=== PATIENT | male | born 1940 | race Caucasian/White ===

== ENCOUNTER 2019-10-07 15:55 | Inpatient (IN) | payer MEDICARE, MEDICAID ==
[~2019-10-07] VITALS: Ht 162.6 cm; Wt 44.1 kg
[2019-10-07 17:11] LABS: BASOPHILS # (AUTO) 0.1 X10'3 (0-0.2); BASOPHILS % (AUTO) 0.5 % (0-1); EOSINOPHILS # (AUTO) 0.1 X10'3 (0-0.9); EOSINOPHILS % (AUTO) 0.3 % (0-6); HEMATOCRIT 28.6 % (42.0-52.0); HEMOGLOBIN 9.2 g/dl (14.0-17.9); LYMPHOCYTES # (AUTO) 0.3 X10'3 (1.1-4.8); MEAN CORPUSCULAR HEMOGLOBIN 24.9 PG (27.0-31.0); MEAN CORPUSCULAR HGB CONC 32.3 g/dL (33.0-36.5); MEAN CORPUSCULAR VOLUME 77.1 FL (78-98); MEAN PLATELET VOLUME 8.7 FL (7.4-10.4); MONOCYTES # (AUTO) 1.1 X10'3 (0-0.9); MONOCYTES % (AUTO) 6.6 % (2-12); NEUTROPHILS % (AUTO) 90.6 % (42-75); PLATELET COUNT 575 X10'3 (140-440); RED BLOOD COUNT 3.71 X10'6 (4.70-6.10); RED CELL DISTRIBUTION WIDTH 18.4 % (11.5-14.5); WHITE BLOOD COUNT 16.5 X10'3 (4.5-11.0)
[2019-10-07 17:23] LABS: PARTIAL THROMBOPLASTIN TIME 26 SECONDS (22-32)
[2019-10-07] MEDS ORDERED: levoFLOXACIN-Levaquin 750MG/D5 150 ML IV ONE (17:25)
[2019-10-07 17:29] LABS: ALANINE AMINOTRANSFERASE 19 U/L (12-78); ALBUMIN 2.1 G/DL (3.4-5.0); ALBUMIN/GLOBULIN RATIO 0.4 (1.1-1.5); ALKALINE PHOSPHATASE 85 IU/L (46-116); ANION GAP 7 (8-16); ASPARTATE AMINO TRANSFERASE 14 U/L (10-37); BILIRUBIN,TOTAL 0.2 MG/DL (0.1-1.0); BLOOD UREA NITROGEN 47 MG/DL (7-18); BUN/CREATININE RATIO 45.2 (5.4-32.0); CALCIUM 9.1 MG/DL (8.5-10.1); CHLORIDE 102 MMOL/L (99-107); CREATININE 1.04 MG/DL (0.60-1.10); GLUCOSE 119 MG/DL (70-104); POTASSIUM 4.6 MMOL/L (3.5-5.1); SODIUM 139 MMOL/L (135-145); TOTAL CARBON DIOXIDE 29.9 MMOL/L (24-32); TOTAL PROTEIN 7.6 G/DL (6.4-8.2); eGFR 69 ML/MIN
[2019-10-07] MEDS ORDERED: IPRA4AER PO (17:32)
[2019-10-07] MEDS ORDERED: GABA-532 PO (17:32)
[2019-10-07] MEDS ORDERED: CHOL100025 PO (17:32)
[2019-10-07] MEDS ORDERED: LISI-600 PO (17:32)
[2019-10-07] MEDS ORDERED: DICL-157 PO (17:32)
[2019-10-07] MEDS ORDERED: ROSU10TA28 PO (17:32)
[2019-10-07] MEDS ORDERED: BENZ-49 PO (17:32)
[2019-10-07] MEDS ORDERED: QUET50TA22 PO (17:32)
[2019-10-07 17:54] LABS: MAGNESIUM 2.3 MG/DL (1.5-2.4)
--- NOTE | 2019-10-07 18:10 | NUR ---
patient unable to urinate at this time
--- NOTE | 2019-10-07 18:31 | NUR ---
Helped pt attempt to use urinal for voiding but he was unable to produce urine. Pt not willing to be straight catheterized at this time.
[2019-10-07] MEDS ORDERED: magnesium Cl slow-release 64mg tablet PO PRN (19:00)
[2019-10-07] MEDS ORDERED: potassium CL 10mEq/100ml bag 100 ML IV PRN ×2 (19:00)
[2019-10-07] MEDS ORDERED: magnesium 4gm in 100ml NS 100 ML IV PRN (19:00)
[2019-10-07] MEDS ORDERED: potassium Cl 20 mEq SR tablet PO PRN ×2 (19:00)
[2019-10-07] MEDS ORDERED: morphine 2 MG/ML inj. syringe IV PRN (19:00)
[2019-10-07] MEDS ORDERED: ondansetron/PF 4mg/2ml inj IV PRN (19:00)
[2019-10-07] MEDS ORDERED: magnesium 2GM in 50ml NS 50 ML IV PRN (19:00)
[2019-10-07] MEDS: pantoprazole 40 MG vial IV SCH (19:26)
[2019-10-07] MEDS: K and/or MAG REPLACEMENT MC SCH (20:00)
--- NOTE | 2019-10-07 20:10 | NUR ---
received report from Rosalio PETERS RN. had opportunity to ask questions. awaiting pt.
[2019-10-07 20:20] VITALS: BP 153/78
[2019-10-07 20:34] LABS: CLARITY,URINE CLEAR (Clear); COLOR,URINE YELLOW (Yellow); GLUCOSE, URINE NEGATIVE (Neg); KETONES,URINE NEGATIVE (Neg); LEUKOCYTE ESTERASE ,URINE NEGATIVE (Neg); NITRITES, URINE NEGATIVE (Neg); OCCULT BLOOD,URINE TRACE-INTACT (Neg); PROTEIN,URINE NEGATIVE (Neg); UROBILINOGEN,URINE 0.2 E.U/dL (0.2-1.0)
[2019-10-07 20:36] LABS: UA COLLECTION TYPE CLN CATCH MIDSTREAM
[2019-10-07 21:16] LABS: BACTERIA,URINE NONE SEEN /HPF (Neg); MUCUS STRANDS FEW /LPF (Neg); SQUAMOUS EPITHELIAL CELL,UR FEW /LPF (FEW); WBC,URINE 0-4 /HPF (0-4)
[2019-10-07 21:17] LABS: HYALINE CASTS 0-3 /LPF (NEGATIVE)
--- NOTE | 2019-10-07 22:28 | NUR ---
NOTIFIED PAGER ID: [phone] MESSAGE: Durga Martin, [phone]- pt states that he has insomnia and usually takes 50mg of Seroquel, if we can't give him that, could we get an order for melatonin 6mg per pt request?
[2019-10-07] MEDS: Melatonin 3mg tablet PO PRN (22:52)
[2019-10-07 23:00] VITALS: BP 137/70
[2019-10-07] MEDS ORDERED: benzonatate 100mg capsule PO PRN (23:25)
[2019-10-07] MEDS ORDERED: gabapentin 300mg capsule PO PRN (23:25)
[2019-10-08] VITALS (19 sets, daily range): BP systolic 99–148; BP diastolic 52–80
[2019-10-08] MEDS: lisinopril 20mg tablet PO SCH ×2 (00:58→07:44)
[2019-10-08] MEDS ORDERED: DICLOFENAC 75 MG PO PRN (02:50)
[2019-10-08] MEDS ORDERED: ipratropium/albuterol 3ml nebule IH PRN (03:05)
[2019-10-08 05:43] LABS: BASOPHILS % (AUTO) 0.2 % (0-1); EOSINOPHILS # (AUTO) 0.1 X10'3 (0-0.9); EOSINOPHILS % (AUTO) 0.9 % (0-6); HEMATOCRIT 24.9 % (42.0-52.0); HEMOGLOBIN 8.1 g/dl (14.0-17.9); LYMPHOCYTES # (AUTO) 0.4 X10'3 (1.1-4.8); LYMPHOCYTES % (AUTO) 3.7 % (21-51); MEAN CORPUSCULAR HEMOGLOBIN 24.7 PG (27.0-31.0); MEAN CORPUSCULAR HGB CONC 32.7 g/dL (33.0-36.5); MEAN CORPUSCULAR VOLUME 75.5 FL (78-98); MEAN PLATELET VOLUME 9.2 FL (7.4-10.4); MONOCYTES % (AUTO) 8.4 % (2-12); NEUTROPHILS % (AUTO) 86.8 % (42-75); PLATELET COUNT 551 X10'3 (140-440); RED BLOOD COUNT 3.29 X10'6 (4.70-6.10); RED CELL DISTRIBUTION WIDTH 18.2 % (11.5-14.5); WHITE BLOOD COUNT 11.5 X10'3 (4.5-11.0)
[2019-10-08 05:56] LABS: ALBUMIN 1.7 G/DL (3.4-5.0); ANION GAP 10 (8-16); BLOOD UREA NITROGEN 34 MG/DL (7-18); BUN/CREATININE RATIO 36.2 (5.4-32.0); CALCIUM 8.5 MG/DL (8.5-10.1); CHLORIDE 104 MMOL/L (99-107); CREATININE 0.94 MG/DL (0.60-1.10); GLUCOSE 84 MG/DL (70-104); MAGNESIUM 1.9 MG/DL (1.5-2.4); POTASSIUM 3.9 MMOL/L (3.5-5.1); SODIUM 140 MMOL/L (135-145); TOTAL CARBON DIOXIDE 25.7 MMOL/L (24-32); eGFR 77 ML/MIN
[2019-10-08 06:04] LABS: % IRON SATURATION 6 % (11-46); IRON 10 UG/DL (53-167); TOTAL IRON BINDING CAPACITY 180 UG/DL (259-388)
[2019-10-08] MEDS: vitamin D (cholecalciferol) 1,000 unit tablet PO SCH (07:43)
[2019-10-08] MEDS: atorvastatin 20mg tablet PO SCH (07:44)
[2019-10-08] MEDS: pantoprazole 40 MG vial IV SCH ×2 (07:45→20:11)
[2019-10-08] MEDS: K and/or MAG REPLACEMENT MC SCH ×2 (08:00→20:00)
[2019-10-08] MEDS ORDERED: pneumococcal 23-VAL P-sac vacc 25 mcg/0.5ml vial IMVAC ONE (10:00)
[2019-10-08] MEDS ORDERED: fentaNYL/PF 50MCG/1 ML 2ML syringe ONE (11:53)
[2019-10-08] MEDS ORDERED: MIDAZolam 5mg/5ml vial ONE (11:54)
[2019-10-08] MEDS ORDERED: LIDOcaine Viscous 15ml cup ONE (11:54)
--- NOTE | 2019-10-08 12:52 | NUR ---
Patient in room PCU 3013. I have received report from OZZIE Finch and had the opportunity to ask questions and assume patient care. pt at GI lab currently. at bedside.
--- NOTE | 2019-10-08 13:00 | NUR ---
Problems reprioritized. Patient report given, questions answered & plan of care reviewed with Philomena Moe RN.
--- NOTE | 2019-10-08 15:42 | NUR ---
Malnutrition consult: Multiple attempts to visit pt at bedside however pt not available. Current BMI is underweight at 16.7 using pt stated wt of 97 lbs. No recent wt hx to assess for wt loss. Patient's diet just advanced to full liquid from NPO, pending first meal. Pt with no significant decrease in muscle strength and no edema. Currently lacking sufficient information to fully assess for malnutrition. Will f/u tomorrow. Addendum: 10/08/19 at [address] Amended: Links added.
--- NOTE | 2019-10-08 16:00 | NUR ---
pt back from gi lab in stable condition with at bedside. 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
[2019-10-08] MEDS: levoFLOXACIN-Levaquin 500mg/D5 100 ML IV SCH (16:42)
--- NOTE | 2019-10-08 17:29 | NUR ---
paged Dr. Shields promotional table spacer PAGER ID: [phone] MESSAGE: anitha [facility] [phone] can you call me please Federico webster 86/53 74/41 ntg gtt paused Addendum: 10/08/19 at 1746 by Anihta Hernandez RN error, wrong pt
--- NOTE | 2019-10-08 18:29 | NUR ---
Problems reprioritized. Patient report given, questions answered & plan of care reviewed with OZZIE Arteaga.
[2019-10-08] MEDS: Melatonin 3mg tablet PO PRN (20:09)
[2019-10-08] MEDS: QUEtiapine 25mg tablet PO SCH (20:10)
[2019-10-09] VITALS (7 sets, daily range): BP systolic 115–146; BP diastolic 58–78
--- NOTE | 2019-10-09 04:08 | NUR ---
Patient in room PCU 3013. I have received report from OZZIE Shoemaker and had the opportunity to ask questions and assume patient care.
--- NOTE | 2019-10-09 06:46 | NUR ---
Problems reprioritized. Patient report given, questions answered & plan of care reviewed with OZZIE Barfield.
[2019-10-09 06:50] LABS: BASOPHILS % (AUTO) 0.2 % (0-1); EOSINOPHILS # (AUTO) 0.2 X10'3 (0-0.9); EOSINOPHILS % (AUTO) 1.2 % (0-6); HEMATOCRIT 25.7 % (42.0-52.0); HEMOGLOBIN 8.3 g/dl (14.0-17.9); LYMPHOCYTES # (AUTO) 0.5 X10'3 (1.1-4.8); LYMPHOCYTES % (AUTO) 3.9 % (21-51); MEAN CORPUSCULAR HEMOGLOBIN 24.6 PG (27.0-31.0); MEAN CORPUSCULAR HGB CONC 32.2 g/dL (33.0-36.5); MEAN CORPUSCULAR VOLUME 76.4 FL (78-98); MEAN PLATELET VOLUME 8.9 FL (7.4-10.4); MONOCYTES % (AUTO) 7.9 % (2-12); NEUTROPHILS # (AUTO) 10.9 X10'3 (1.8-7.7); NEUTROPHILS % (AUTO) 86.8 % (42-75); PLATELET COUNT 584 X10'3 (140-440); RED BLOOD COUNT 3.36 X10'6 (4.70-6.10); RED CELL DISTRIBUTION WIDTH 18.3 % (11.5-14.5); WHITE BLOOD COUNT 12.6 X10'3 (4.5-11.0)
[2019-10-09 06:51] LABS: ALBUMIN 1.8 G/DL (3.4-5.0); ANION GAP 8 (8-16); BLOOD UREA NITROGEN 29 MG/DL (7-18); BUN/CREATININE RATIO 27.9 (5.4-32.0); CALCIUM 8.6 MG/DL (8.5-10.1); CHLORIDE 105 MMOL/L (99-107); CREATININE 1.04 MG/DL (0.60-1.10); GLUCOSE 97 MG/DL (70-104); POTASSIUM 4.2 MMOL/L (3.5-5.1); SODIUM 141 MMOL/L (135-145); eGFR 69 ML/MIN
[2019-10-09] MEDS: K and/or MAG REPLACEMENT MC SCH ×2 (08:00→20:00)
[2019-10-09] MEDS: pantoprazole 40 MG vial IV SCH ×2 (08:22→20:09)
[2019-10-09] MEDS: atorvastatin 20mg tablet PO SCH (08:23)
[2019-10-09] MEDS: lisinopril 20mg tablet PO SCH (08:23)
[2019-10-09] MEDS: vitamin D (cholecalciferol) 1,000 unit tablet PO SCH (08:23)
[2019-10-09] MEDS: levoFLOXACIN-Levaquin 500mg/D5 100 ML IV SCH (16:07)
[2019-10-09] MEDS ORDERED: lactose-reduced food (Ensure Enlive) - 237ml bottle PO SCH (18:00)
--- NOTE | 2019-10-09 18:12 | NUR ---
Problems reprioritized. Patient report given, questions answered & plan of care reviewed with Jenni HORNE.
--- NOTE | 2019-10-09 18:34 | NUR ---
Patient in room PCU 3013. I have received report from Carolyne Us RN and had the opportunity to ask questions and assume patient care.
--- NOTE | 2019-10-09 18:50 | NUR ---
F/u: Pt seen by RD and has visible severe muscle/fat wasting which meets severe malnutrition criteria. Pt reports significant wt loss hx but unable to give exact amount or time frame. Pt reports drinks chocolate ensures at home and is agreeable to them here. MD notified of ONS and severe malnutrition. Pt is aware ONS pending MD verification prior to sending on trays. RD provided written/verbal malnutrition ed w/ RD contact information. LBM 10/05. [email or web address] MD regarding routine bowel care given constipation. Pt PO 75% full liquid meal now advanced to heart healthy pending PO. Will continue to monitor. Rec: 1. continue heart healthy diet per MD 2. chocolate ensure enlive TIDWM; pending MD verification prior to sending on trays 3. routine bowel care 4. weekly wts Addendum: 10/09/19 at [address] Amended: Links added.
[2019-10-09] MEDS: QUEtiapine 25mg tablet PO SCH (20:08)
[2019-10-09] MEDS: Melatonin 3mg tablet PO PRN (20:08)
[2019-10-10 02:59] VITALS: BP 121/61
[2019-10-10 05:40] LABS: ALBUMIN 1.7 G/DL (3.4-5.0); ANION GAP 5 (8-16); BLOOD UREA NITROGEN 29 MG/DL (7-18); BUN/CREATININE RATIO 31.5 (5.4-32.0); CALCIUM 8.3 MG/DL (8.5-10.1); CHLORIDE 106 MMOL/L (99-107); CREATININE 0.92 MG/DL (0.60-1.10); GLUCOSE 97 MG/DL (70-104); MAGNESIUM 1.9 MG/DL (1.5-2.4); POTASSIUM 3.6 MMOL/L (3.5-5.1); SODIUM 140 MMOL/L (135-145); TOTAL CARBON DIOXIDE 28.8 MMOL/L (24-32); eGFR 79 ML/MIN
[2019-10-10 05:41] LABS: BASOPHILS % (AUTO) 0.4 % (0-1); EOSINOPHILS # (AUTO) 0.2 X10'3 (0-0.9); EOSINOPHILS % (AUTO) 1.8 % (0-6); HEMATOCRIT 23.5 % (42.0-52.0); HEMOGLOBIN 7.7 g/dl (14.0-17.9); LYMPHOCYTES # (AUTO) 0.4 X10'3 (1.1-4.8); LYMPHOCYTES % (AUTO) 3.7 % (21-51); MEAN CORPUSCULAR HGB CONC 32.9 g/dL (33.0-36.5); MEAN PLATELET VOLUME 8.8 FL (7.4-10.4); MONOCYTES % (AUTO) 9.1 % (2-12); NEUTROPHILS # (AUTO) 9.5 X10'3 (1.8-7.7); PLATELET COUNT 526 X10'3 (140-440); RED CELL DISTRIBUTION WIDTH 18.7 % (11.5-14.5); WHITE BLOOD COUNT 11.2 X10'3 (4.5-11.0)
--- NOTE | 2019-10-10 06:09 | NUR ---
Problems reprioritized. Patient report given, questions answered & plan of care reviewed with Carolyne Us RN.
--- NOTE | 2019-10-10 06:30 | NUR ---
Patient in room PCU 3013. I have received report from Jenni HORNE and had the opportunity to ask questions and assume patient care.
[2019-10-10] MEDS: K and/or MAG REPLACEMENT MC SCH (06:53)
[2019-10-10 07:05] VITALS: BP 133/63
[2019-10-10] MEDS: lisinopril 20mg tablet PO SCH (08:14)
[2019-10-10] MEDS: pantoprazole 40 MG vial IV SCH (08:14)
[2019-10-10] MEDS: atorvastatin 20mg tablet PO SCH (08:14)
[2019-10-10] MEDS: vitamin D (cholecalciferol) 1,000 unit tablet PO SCH (08:14)
[2019-10-10] MEDS ORDERED: pneumococcal 23-VAL P-sac vacc 25 mcg/0.5ml vial IMVAC ONE (10:00)
[2019-10-10 10:03] VITALS: BP 123/61
[2019-10-10 10:18] VITALS: BP 117/63
[2019-10-10 11:00] VITALS: BP 117/59
[2019-10-10] MEDS ORDERED: PANT-47 PO (11:37)
[2019-10-10] MEDS ORDERED: LEVO500T2 PO (11:37)
[2019-10-10 12:24] LABS: HEMATOCRIT 26.6 % (42.0-52.0); HEMOGLOBIN 8.7 g/dl (14.0-17.9); MEAN CORPUSCULAR HEMOGLOBIN 24.7 PG (27.0-31.0); MEAN CORPUSCULAR HGB CONC 32.6 g/dL (33.0-36.5); MEAN CORPUSCULAR VOLUME 75.9 FL (78-98); PLATELET COUNT 584 X10'3 (140-440); RED BLOOD COUNT 3.51 X10'6 (4.70-6.10); RED CELL DISTRIBUTION WIDTH 18.5 % (11.5-14.5); WHITE BLOOD COUNT 13.3 X10'3 (4.5-11.0)
--- NOTE | 2019-10-10 14:51 | NUR ---
Patient discharged at `1445, with [facility] worker. Patient reviewed discharge instructions before signing and being sent home with patient. PIV was removed and tele was d/c'd. RX was faxed to pharmacy [facility] on [address]. Patient was wheeled down by staff and left via private vehicle.
[2019-10-17 15:43] LABS: OCCULT BLOOD STOOL POSITIVE (Neg)
[2019-10-20] MEDS ORDERED: DICL-157 PO (13:31)
[2019-10-20] MEDS ORDERED: ASPI-611 PO (13:32)
[2019-10-20] MEDS ORDERED: MULT1TAB74 PO (13:32)
[2019-10-23] MEDS ORDERED: LEVO500T2 PO (09:53)
== END 2019-10-10 14:45 | disposition home health service (06) | DRG 871 ==
LOC: ER 15:56 → ED HOLD 19:00 → PCU 3S 20:20
PROVIDERS: ADMIT Internal Medicine; ATTEND Family Medicine
PROC: 0DJ08ZZ Inspection of Upper Intestinal Tract, Via Natural or Artificial Opening Endoscopic (ICD-10-PCS; 2019-10-08)
PROC: 0W993ZZ Drainage of Right Pleural Cavity, Percutaneous Approach (ICD-10-PCS; principal; 2019-10-10)
PROC: 3E0234Z Introduction of Serum, Toxoid and Vaccine into Muscle, Percutaneous Approach (ICD-10-PCS; 2019-10-10)
DX: A41.9 Sepsis, unspecified organism (principal); J18.9 Pneumonia, unspecified organism; K29.61 Other gastritis with bleeding; J44.0 Chronic obstructive pulmonary disease with (acute) lower respiratory infection; K92.0 Hematemesis; J91.8 Pleural effusion in other conditions classified elsewhere; E78.5 Hyperlipidemia, unspecified; G47.00 Insomnia, unspecified; D63.0 Anemia in neoplastic disease; G62.9 Polyneuropathy, unspecified; I10 Essential (primary) hypertension; K21.0 Gastro-esophageal reflux disease with esophagitis; K44.9 Diaphragmatic hernia without obstruction or gangrene; M19.90 Unspecified osteoarthritis, unspecified site; Z79.899 Other long term (current) drug therapy; Z85.118 Personal history of other malignant neoplasm of bronchus and lung; Z87.891 Personal history of nicotine dependence; Z23 Encounter for immunization; Z92.3 Personal history of irradiation
CPT/HCPCS: 32555; 36415; 43235; 71045; 80048; 80053; 81001; 82272; 83540; 83550; 83605; 83735; 84145; 85025; 85027; 85610; 85730; 86885; 86900; 86901; 87040; 87081; 90732; 93005; 94760; 96365; 99152; 99285; A4620; C9113; G0378; J1956; J2250; J3010; J7040